=== PATIENT | male | born 1955 | race Caucasian/White ===

== ENCOUNTER 2019-12-15 09:16 | Outpatient (CLI) | payer MEDICARE, SELFPAY ==
[2019-12-15 09:28] LABS: Basophils Absolute Auto 0.04 K/mm3 (0.00-0.10); Basophils Percent Auto 0.8 % (0.0-1.0); Eosinophils Absolute Auto 0.07 K/mm3 (0.02-0.50); Eosinophils Percent Auto 1.4 % (1.0-6.0); Hemoglobin 14.9 g/dL (12.4-15.3); Immature Granulocyte Absolute 0.03 K/mm3 (0.00-0.00); Immature Granulocyte Percent A 0.6 % (0.0-0.0); Lymphocytes Absolute Auto 2.09 K/mm3 (1.10-4.50); Lymphocytes Percent Auto 42.2 % (18.0-42.0); Mean Corpuscular HGB Conc 33.1 g/dL (32.0-36.0); Mean Corpuscular Hemoglobin 28.7 pg (27.0-31.0); Mean Corpuscular Volume 86.7 fL (78.0-102.0); Mean Platelet Volume 9.5 fl (8.7-11.0); Monocytes Absolute Auto 0.72 K/mm3 (0.10-0.90); Monocytes Percent Auto 14.5 % (2.0-11.0); Neutrophils Percent Auto 40.5 % (50.0-70.0); Platelet Count Result 154 K/mm3 (150-420); Red Blood Count 5.19 M/mm3 (4.70-6.10)
[2019-12-15 10:41] LABS: Alanine Aminotransferase 30 U/L (16-63); Albumin Level 3.7 g/dL (3.4-5.0); Alkaline Phosphatase 93 U/L (46-116); Anion Gap 14.7 mmol/L (7-16); Aspartate Amino Transferase 17 U/L (15-37); Bilirubin,Total 0.5 mg/dL (0.00-1.00); Blood Urea Nitrogen 14 mg/dL (7-18); Calcium 9.2 mg/dL (8.5-10.1); Carbon Dioxide 29 mmol/L (21-32); Chloride 106 mmol/L (98-108); Estimated Glomerular Filt Rate > 60; Glucose 124 mg/dL (70-99); Osmolality Calculated 303 mOsm/kg (285-295); Potassium 3.7 mmol/L (3.5-5.1); Sodium 146 mmol/L (136-145); Total Protein 7.5 g/dL (6.4-8.2)
[2019-12-20 08:13] LABS: Valproic Acid 52.5 mg/L (50.0-100.0)
== END 2019-12-15 09:17 | disposition home or self-care (01) ==
PROVIDERS: PCP Emergency Medicine
DX: Z79.899 Other long term (current) drug therapy (principal)
CPT/HCPCS: 36415; 80053; 80164; 85025

== ENCOUNTER 2021-06-24 15:31 | Observation (INO) | payer MEDICARE, MEDICAID, SELFPAY ==
[2021-06-24] VITALS (10 sets, daily range): BP systolic 120–137; BP diastolic 77–100; PULSE 63–102; RESP 14–20; TEMP 36.6–36.9; O2SAT 93–99; BMI 26.4
--- NOTE | ~2021-06-24 | US_ITS ---
EXAMINATION: US carotid duplex BI DATE: 06/25/2021 07:59 INDICATION: Weakness. Chest pain. TECHNIQUE: Grayscale, color Doppler, and pulsed Doppler images of the cervical carotid arteries were obtained. The degree of vessel stenosis is placed in one of the following categories: normal, <50%, 5 0-69%, >=70% but less than near-occlusion, near-occlusion, or total occlusion. Note that percent sten osis relative to normal distal artery lumen diameter is indirectly measured from velocity measurement s as described by Miko, et al. Radiology 2003; 229:340-346. COMPARISON: None. FINDINGS: RIGHT: The right common carotid artery (CCA) peak systolic velocity (PSV) is 100 cm/s. The right internal ca rotid artery (ICA) PSV is 93 cm/s. The right ICA end-diastolic velocity (EDV) is 22 cm/s. The right I CA/CCA PSV ratio is 0.9. Grayscale and color Doppler images yield an estimate of <50% diameter reduct ion from minimal plaque in the ICA. The external carotid artery (ECA) PSV is 63 cm/s. There is antegr shelby flow in the right vertebral artery. LEFT: The left CCA PSV is 105 cm/s. The left ICA PSV is 63 cm/s. The left ICA EDV is 19 cm/s. The left ICA/ CCA PSV ratio is 0.6. Grayscale and color Doppler images yield an estimate of <50% diameter reduction from small amount of plaque in the ICA. The ECA PSV is 74 cm/s. There is antegrade flow in the left vertebral artery. IMPRESSION: 1. <50% stenosis in the right internal carotid artery. 2. <50% stenosis in the left internal carotid artery. Reviewed, dictated and finalized at location A.
--- NOTE | ~2021-06-24 | XR_ITS ---
XR chest 1V portable DATE: 06/24/2021 15:47 INDICATION: Chest pain. Weakness. TECHNIQUE: Portable AP chest on 06/24/2021 at 1542 hours COMPARISON: None FINDINGS: Status post sternotomy and probable coronary bypass graft surgery. Normal heart size. Mild thoracic aortic unfolding. No hilar enlargement is evident. There is mild pro minence of the superior mediastinum on the right, possibly due to tortuous great vessels or substerna l thyroid. No pulmonary infiltrate or consolidation, pleural effusion or pulmonary vascular congestion or pneumo thorax. Bilateral chronic rotator cuff atrophy. Diffuse osteopenia. Diffuse idiopathic skeletal hyperostosis of the thoracic spine and mild thoracic dextroscoliosis. Old healed fractures of the left rib cage. IMPRESSION: Status post sternotomy; no active cardiopulmonary disease Reviewed, dictated and finalized at location A.
--- NOTE | 2021-06-24 15:35 | ECG_ITS ---
Measurements Intervals [facility] Rate: 100 P: 72 OR: 178 QRS: 61 QRSD: 109 T: 74 QT: 360 QTc: 464 Interpretive Statements SINUS TACHYCARDIA MINIMAL Q WAVES- INFERIOR LEADS BORDERLINE T WAVE ABNORMALITY- HIGH LATERAL LEADS BORDERLINE ECG Electronically Signed On 06-25-2021 6:06:13 CDT by Pradeep Velasco D.O.
--- NOTE | 2021-06-24 15:35 | ED.CHESTPAIN ---
HPI - Chest Pain General Chief Complaint: Dizziness Stated Complaint: ambulance Time Seen by Provider: 06/24/21 15:35 Source: patient Mode of arrival: EMS Limitations: no limitations History of Present Illness HPI narrative: 66-year-old man with a history of coronary artery disease status post CABG and 7 stents brought to the emergency department after he became weak at [facility]. Patient states he did not really fall just lowered himself and bumped the left side of his head lightly. He was weak. He had walked to the store. He was found to be diaphoretic, sitting in a chair and have a blood sugar of 99. Just prior to arrival to the hospital he was complaining of chest tightness. MD complaint: chest pain (tightness) Pertinent past history: coronary artery disease and prior ND Onset (ago): minute(s) (20) Timing of current episode: episodic Prior episodes: Yes Onset: other (standing) Pain radiation: none Severity: mild Pain scale (0-10): 3 Quality: tightness Relieving factors: nothing Exacerbating factors: nothing Associated symptoms: diaphoresis Treatment prior to arrival: none Risk Factors Coronary artery disease risk factors: hyperlipidemia, hypertension and family history of CAD before age 50 (55) Thoracic aortic dissection risk factors: none Related Data Home Medications Medication Instructions Recorded Confirmed aspirin 81 mg tablet,delayed 81 mg PO DAILY 10/08/19 release buspirone 15 mg tablet 15 mg PO BID 10/08/19 carvedilol 3.125 mg tablet See Rx Instructions .ROUTE .COMPLEX 10/08/19 cholecalciferol (vitamin D3) 25 25 mcg PO DAILY 10/08/19 mcg (1,000 unit) capsule clopidogrel 75 mg tablet 75 mg PO DAILY 10/08/19 divalproex 500 mg tablet,delayed See Rx Instructions .ROUTE .COMPLEX 10/08/19 release melatonin 5 mg capsule See Rx Instructions .ROUTE .COMPLEX 10/08/19 metoprolol succinate 50 mg 50 mg PO DAILY 10/08/19 tablet,extended release 24 hr multivitamin 1 tablet PO .Daily with food 10/08/19 tablet omega-3 fatty acids 1,000 mg See Rx Instructions .ROUTE .COMPLEX 10/08/19 capsule quetiapine 100 mg tablet 100 mg PO DAILY tablet 10/08/19 trazodone 50 mg tablet See Rx Instructions .ROUTE .COMPLEX 12/13/19 zolpidem 5 mg tablet See Rx Instructions .ROUTE .COMPLEX 10/08/19 Allergies Allergy/AdvReac Type Severity Reaction Status Date / Time cyclobenzaprine Allergy Mild RASH Verified 09/30/19 15:58 Review of Systems Review of Systems: All systems reviewed & are unremarkable except as noted in HPI and below Constitutional: Constitutional: Denies chills and Denies fever(s) Eyes: Eyes: Denies change in vision and Denies photophobia ENT: Denies dysphagia, Denies nasal congestion and Denies sore throat Cardiovascular: Cardiovascular: Denies chest pain and Denies radiating jaw, neck or arm pain Respiratory: Respiratory: Denies cough, Denies dyspnea and Denies wheezing Gastrointestinal: Gastrointestinal: Denies abdominal pain, Denies diarrhea, Denies nausea and Denies vomiting Genitourinary: Genitourinary: Denies dysuria and Denies urinary frequency Musculoskeletal: Musculoskeletal: Denies back pain, Denies arthralgias and Denies joint swelling Integumentary/Breasts: Skin/Breast: Denies pruritus, Denies erythema and Denies rash Neurologic: Denies vertigo, Denies dizziness and Denies syncope Hematologic/Lymphatic: Hematologic/Lymphatic: Denies easy bleeding and Denies easy bruising Allergic/Immunologic: Allergic/Immunologic: Denies lip swelling and Denies throat swelling [facility] Past Medical History Medical History (Updated 06/24/21 @ 15:54 by Nakul Nicole MD) Coronary artery disease Depression Dyslipidemia Hypertension Surgical History Surgical History (Updated 06/24/21 @ 15:53 by Nakul Nicole MD) History of cholecystectomy Hx of CABG Previous back surgery Stented coronary artery Family History Family History (System 09/30/19 @ 15:58 by Aminah
[2021-06-24] MEDS: ASPIRIN 81 MG CHEWABLE TABLET 324 MG PO (15:49)
[2021-06-24 15:56] LABS: Hematocrit 40.1 % (37.0-46.0); Hemoglobin 13.7 g/dL (12.4-15.3); Mean Corpuscular HGB Conc 34.2 g/dL (32.0-36.0); Mean Corpuscular Hemoglobin 29.9 pg (27.0-31.0); Mean Corpuscular Volume 87.6 fL (78.0-102.0); Mean Platelet Volume 9.3 fl (8.7-11.0); Platelet Count Result 119 K/mm3 (150-420); Red Blood Count 4.58 M/mm3 (4.70-6.10); Red Cell Distribution Width 12.5 % (11.6-14.4); White Blood Count 3.7 K/mm3 (4.8-10.8)
[2021-06-24 16:14] LABS: Alanine Aminotransferase 30 U/L (16-63); Albumin Level 3.2 g/dL (3.4-5.0); Alkaline Phosphatase 66 U/L (46-116); Anion Gap 13 mmol/L (8-16); Aspartate Amino Transferase 16 U/L (15-37); Bilirubin,Total 0.7 mg/dL (0.00-1.00); Blood Urea Nitrogen 12 mg/dL (7-18); Calcium 8.1 mg/dL (8.5-10.1); Carbon Dioxide 23 mmol/L (21-32); Chloride 106 mmol/L (98-108); Estimated CRCL calculation 53 ml/min; Estimated Glomerular Filt Rate 56; Glucose 99 mg/dL (70-99); Osmolality Calculated 293 mOsm/kg (285-295); Potassium 3.9 mmol/L (3.5-5.1); Sodium 142 mmol/L (136-145); Total Protein 6.5 g/dL (6.4-8.2); Troponin I 6.2 ng/L (0.00-60.4)
[2021-06-24 16:33] LABS: Band Neutrophils Percent 0 % (0-6); Basophils Percent Manual 0 % (0-1); Eosinophils Absolute Manual 0.03 K/mm3 (0.02-0.5); Eosinophils Percent Manual 1 % (1-6); Lymphocytes Absolute Manual 0.66 K/mm3 (1.1-4.5); Lymphocytes Percent Manual 18 % (18-44); Monocytes Absolute Manual 0.51 K/mm3 (0.1-0.90); Monocytes Percent Manual 14 % (3-9); Neutrophils Absolute Manual 2.47 K/mm3 (1.3-6.7); Neutrophils Percent Manual 67 % (46-73); Platelet Estimate Adequate (Adequate)
[2021-06-24] MEDS: NITROGLYCERIN SL 0.4 MG TABLET SUBLINGUAL (17:02)
[2021-06-24] MEDS: SODIUM CHLORIDE 0.9% IV 1,000 ML 999 ML IV CONT (17:02)
--- NOTE | 2021-06-24 17:02 | PC.NURSE ---
pt calls for RN, upon entering the room pt is sitting on the side of the bed and states he rolled onto the floor while sleeping. pt has no evidence of injury and denies hitting his head. erp called into the room for an assessment. pt states he hit his left elbow. no bruising, swelling, injury, pain, etc.
[2021-06-24 17:17] LABS: Ethanol < 3 mg/dL (0-6)
--- NOTE | 2021-06-24 17:18 | PC.NURSE ---
1631 1 L NS initiated by [facility] has finished infusing. ERP aware
--- NOTE | 2021-06-24 17:18 | PC.NURSE ---
chest tightness (3/10). 1 SL nitro tablet given. pain now 2/10. 2nd dose of SL nitro given per erp. pain now 1/10
--- NOTE | 2021-06-24 17:21 | PC.NURSE ---
pt hits call light to tell RN that chest tightness is back up to a 3/10. erp made aware
--- NOTE | 2021-06-24 17:41 | PC.NURSE ---
1721 rn requests obs room from [facility] espitia rn. room 204 provided. registration notified.
[2021-06-24] MEDS: MAG HYDROX/ALUMINUM HYD/SIMETH 30 ML, PHENobarb/HYOSCY/ATROPINE/SCOP 32.4 MG, LIDOCAINE... PO (17:47)
[2021-06-24] MEDS: SODIUM CHLORIDE 0.9% IV 1,000 ML 100 ML IV CONT (18:32)
[2021-06-24 19:02] LABS: Troponin I 9.4 ng/L (0.00-60.4)
[2021-06-24 19:18] LABS: INR 1.1; Partial Thromboplastin Time 24.8 SEC (23.90-30.70); Prothrombin Time 11.5 Seconds (9.50-12.10)
--- NOTE | 2021-06-24 19:42 | PC.NURSE ---
Patient resting in bed watching tv. A&Ox4. Respirations even and unlabored. Abdomen soft and non-tender. BS+x4. No edema noted. Patient denies SOB/chest pain/complaints/needs @ this time. Examined left latter day area where patient says he lightly hit his head when he fell. No bruising or bump noted. Patient says he also bumped his left knee. Examined knee and found a very small abrasion. No bruising or bleeding noted. No distress noted. Patient educated on not getting up unattended and to call nurse when he uses urinal for UA being needed. Call light in reach.
[2021-06-24 20:37] LABS: Add Urine Microscopic? YES; Appearance Urine Clear (Clear); Bilirubin Urine Negative (Negative); Blood Urine Negative (Negative); Color Urine Light Yellow (Yellow); Glucose Urine UA Negative (Negative); Ketones Urine Trace (Negative); Leukocyte Esterase Ur Negative LEU/UL (Negative); Nitrate Urine Negative (Negative); Protein Urine Negative (Negative)
[2021-06-24 20:42] LABS: RBC Urine None seen /hpf (0-2)
[2021-06-24 20:43] LABS: Squamous Epithelial Cell Urine Rare /hpf (Few); WBC Urine None seen /hpf (0-3)
[2021-06-24] MEDS: MIRTAZAPINE 15 MG TABLET 30 MG PO (21:10)
[2021-06-24] MEDS: QUEtiapine FUMARATE 100 MG TABLET PO (21:10)
[2021-06-24] MEDS: DIVALPROEX SODIUM DR 250 MG TABEC 500 MG PO (21:29)
[2021-06-24 21:45] LABS: SARS-CoV-2 Ag Negative (Negative)
[2021-06-24 22:39] LABS: Troponin I 9.7 ng/L (0.00-60.4)
[2021-06-25] VITALS: BP 129/82; PULSE 84; RESP 18; TEMP 36.6; O2SAT 96
[2021-06-25 02:22] LABS: Troponin I 11.3 ng/L (0.00-60.4)
[2021-06-25 04:00] VITALS: BP 147/84; PULSE 68; RESP 18; TEMP 36.6; O2SAT 96
[2021-06-25] MEDS: SODIUM CHLORIDE 0.9% IV 1,000 ML 100 ML IV CONT (04:19)
--- NOTE | 2021-06-25 06:13 | PM.SD2 ---
Same Day Admit/Disch: HPI History of Present Illness Chief complaint: CHEST TIGHTNESS H/O CAD <DALILA Singh - Last Filed: 06/25/21 08:25> Narrative: Ward Macias is a 66 year old male that presented to emergency department with complaints of dizziness and chest tightness. Patient has a past medical history of CAD and status post CABG. According to the patient while he was in a store he felt dizzy and chest discomfort he had no other associated symptoms before this episode. Patient noted that he lowered himself to the floor. patient has not experienced any Dizziness or discomfort since his admission. Patient WBC is 3.7, hemoglobin 13.7, hematocrit 40.1, platelets 119, sodium 142, potassium 3.9, BUN 12, creatinine 1.27, troponin negative x4, EKG sinus tach heart rate 1 100, chest x-ray negative, Covid negative, toxicology negative. The patient denies SOB, CP, palpitation, extremity numbness, lightheadedness, dizziness, constipation, diarrhea, chills, fever,diplopia, vertigo, gait and limb ataxia, facial paresis,dysphagia, dysarthria,hemiparesis/hemiplegia, neglect, aphasia, or visual field defects. Time spent 60 minutes Observation Disposition Home with self-care <DALILA Singh - Last Filed: 06/25/21 08:25> Pt was transferred to [facility] in [place], [place] for Psych. He was not DC'ed home due to suicidal ideation. <MICHI Serrano - Last Filed: 06/26/21 17:15> [facility] Past Medical History Medical History: Medical History Coronary artery disease Depression Dyslipidemia Hypertension <DALILA Singh - Last Filed: 06/25/21 08:25> Surgical History Surgical History: Surgical History History of cholecystectomy Hx of CABG Previous back surgery Stented coronary artery <DALILA Singh - Last Filed: 06/25/21 08:25> Family History Family History: Family History Grandparent Family history of malignant neoplasm Father Family history of heart disease in male family member before age 55 Family history of cardiovascular disease, Onset Age: 73 Sibling Family history of cardiovascular disease Mother Family history of hepatitis, Onset Age: 76 <DALILA Singh - Last Filed: 06/25/21 08:25> Social History Social History: Social History Smoking status: Never smoker Alcohol intake: unknown Substance use: unknown Gender identity (if verbalized by the patient): Male Sexual Orientation (if Verbalized by the Patient): Straight or Heterosexual Spiritual care concerns: No <DALILA Singh - Last Filed: 06/25/21 08:25> Same Day Admit/Disch: Med Pre-admit Medications Home Medications: Home Medications Medication Instructions Recorded Confirmed Type divalproex 500 mg PO HS 06/24/21 06/24/21 History mirtazapine 30 mg PO HS 06/24/21 06/24/21 History quetiapine 100 mg PO HS 06/24/21 06/24/21 History atorvastatin 20 mg PO DAILY #30 tablet 06/25/21 Rx clopidogrel 75 mg PO QAM #30 tablet 06/25/21 Rx metoprolol succinate [Toprol XL] 25 mg PO QAM #30 tablet 06/25/21 Rx <DALILA Singh - Last Filed: 06/25/21 08:25> Exam Narrative: GENERAL: This is a well-nourished, well-developed patient, in no apparent distress. HEAD: normocephalic, atraumatic. EYES: PERRL. Sclera clear/white. Vision is grossly intact. EARS: External ears normal, auditory canals clear and without drainage, TMs normal without perforation. Hearing grossly intact. NOSE: External nose normal with no obvious nasal discharge, nares without redness, no rhinorrhea. THROAT: Mucous membranes moist, posterior pharynx clear. NECK: Neck supple, non-tender without lymphadenopathy, masses or thyromegaly. CARDIOVASC
[2021-06-25 06:14] LABS: Basophils Absolute Auto 0.03 K/mm3 (0.00-0.10); Basophils Percent Auto 0.6 % (0.0-1.0); Eosinophils Absolute Auto 0.04 K/mm3 (0.02-0.50); Eosinophils Percent Auto 0.8 % (1.0-6.0); Hematocrit 39.7 % (37.0-46.0); Hemoglobin 13.1 g/dL (12.4-15.3); Immature Granulocyte Absolute 0.03 K/mm3 (0.00-0.00); Immature Granulocyte Percent A 0.6 % (0.0-0.0); Immature Platelet Fraction Pct 1.8 % (1.0-7.0); Lymphocytes Absolute Auto 1.96 K/mm3 (1.10-4.50); Lymphocytes Percent Auto 41.4 % (18.0-42.0); Mean Corpuscular Hemoglobin 29.3 pg (27.0-31.0); Mean Corpuscular Volume 88.8 fL (78.0-102.0); Mean Platelet Volume 10.2 fl (8.7-11.0); Monocytes Absolute Auto 0.59 K/mm3 (0.10-0.90); Monocytes Percent Auto 12.5 % (2.0-11.0); Neutrophils Absolute Auto 2.1 K/mm3 (1.7-7.2); Neutrophils Percent Auto 44.1 % (50.0-70.0); Platelet Count Result 117 K/mm3 (150-420); Red Blood Count 4.47 M/mm3 (4.70-6.10); Red Cell Distribution Width 12.6 % (11.6-14.4); White Blood Count 4.7 K/mm3 (4.8-10.8)
[2021-06-25 06:39] LABS: Alanine Aminotransferase 27 U/L (16-63); Albumin Level 2.9 g/dL (3.4-5.0); Alkaline Phosphatase 66 U/L (46-116); Anion Gap 8 mmol/L (8-16); Aspartate Amino Transferase 15 U/L (15-37); Bilirubin,Total 0.4 mg/dL (0.00-1.00); Blood Urea Nitrogen 11 mg/dL (7-18); Carbon Dioxide 26 mmol/L (21-32); Chloride 109 mmol/L (98-108); Estimated CRCL calculation 66 ml/min; Estimated Glomerular Filt Rate > 60; Glucose 88 mg/dL (70-99); Osmolality Calculated 294 mOsm/kg (285-295); Potassium 3.6 mmol/L (3.5-5.1); Sodium 143 mmol/L (136-145)
[2021-06-25 06:54] LABS: Troponin I 10.8 ng/L (0.00-60.4)
[2021-06-25 08:00] VITALS: BP 150/98; PULSE 80; RESP 18; TEMP 36.6; O2SAT 96
[2021-06-25 09:43] VITALS: PULSE 84
[2021-06-25] MEDS: CLOPIDOGREL BISULFATE 75 MG TABLET PO (09:43)
[2021-06-25] MEDS: ATORVASTATIN 10 MG TABLET 20 MG PO (09:43)
[2021-06-25] MEDS: METOPROLOL SUCCINATE EXT REL 25 MG TABCR PO (09:43)
[2021-06-25 12:00] VITALS: BP 162/91; PULSE 77; RESP 22; TEMP 36.5; O2SAT 99
--- NOTE | 2021-06-25 13:10 | PC.NURSE ---
Discharge instructions reviewed with patient, patient verbalizes understanding. Patient signed discharge paper, then states, Remember when you asked me about suicide thoughts earlier? SN replied yes, asked patient when thoughts started. Patient reports about an hour ago. States he is in a very dark place and just does not see a way out. SN asked patient if he has a plan on how he would kill himself. States he would go home and take a bunch of pills. Discharge suspended. Patient belongings placed in med room, patient moved to room 206 for purpose of continuous visual observation. Phone and call light removed from room.
--- NOTE | 2021-06-25 13:21 | PM.EVENT ---
Event Note Event Note Event Note: Patient will not be discharged she notes that he is having thoughts of suicide
--- NOTE | 2021-06-25 13:45 | PC.NURSE ---
SN called [facility], spoke to Sara. HERNANDEZ to come out to evaluate patient in the next hour.
[2021-06-25 16:00] VITALS: BP 162/96; PULSE 72; RESP 18; TEMP 36.3; O2SAT 98
--- NOTE | 2021-06-25 18:31 | PC.NURSE ---
1505 Regino, [facility], here to evaluate patient. Patient states he would like to be admitted for voluntary psych eval. Regino spoke to son, Michoacano Macias, regarding voluntary admission and phone consent to release information,
--- NOTE | 2021-06-25 18:35 | PC.NURSE ---
Utility Locate Technician from [facility] called and stated either Beata or Elliot will be following up with patient.
[2021-06-25] MEDS: DIVALPROEX SODIUM DR 250 MG TABEC 500 MG PO (20:30)
[2021-06-25] MEDS: QUEtiapine FUMARATE 100 MG TABLET PO (20:30)
[2021-06-25] MEDS: MIRTAZAPINE 15 MG TABLET 30 MG PO (20:30)
--- NOTE | 2021-06-25 20:35 | PC.NURSE ---
Patient sitting on edge of bed. Nurse asked if patient would like to watch tv and patient said yes. Nurse helped patient find a channel he liked and then patient laid down in the bed and started watching tv.
--- NOTE | 2021-06-25 21:00 | PC.NURSE ---
Patient came out to nurses station and asked for his underwear that are with his personal belongings, locked in med room. Asked patient if someone had brought him some clean ones and he said no, that the nurse had washed them out last night when he had an accident in them. This nurse is the one that had washed them out the evening before this and placed them into a personal belongings bag. Patient wanted to hang them over his bed rail to dry. When told patient he couldn't do that, he said that he'd just put them back on then. Nurse then said he couldn't wear wet underwear. Then patient said he would put the underwear on under or over the depend he was wearing. Patient just stood staring @ nothing for approximately 1 minute. Nurse asked patient to walk back to his room with nurse and he continued staring off into space. After second time nurse asked, patient then walked back to his room with nurse. Patient sat on edge of bed for several minutes and then laid down.
--- NOTE | 2021-06-25 22:15 | PC.NURSE ---
Patient appears to be sleeping by the rise and fall of his chest. Respirations even and unlabored. No distress noted.
--- NOTE | 2021-06-25 22:16 | PC.NURSE ---
3159 Baeta from [facility] called and asked nurse to fax chart to [facility]. [phone]
[2021-06-26] VITALS: BP 160/91; PULSE 65; RESP 18; TEMP 35.6; O2SAT 96
[2021-06-26 00:04] LABS: Thyroid Stimulating Hormone 3.02 uIU/mL (0.36-3.74)
--- NOTE | 2021-06-26 01:46 | ECG_ITS ---
Measurements Intervals [place] [facility] Rate: 64 P: 64 TX: 220 QRS: 50 QRSD: 108 T: 79 QT: 445 QTc: 459 Interpretive Statements SINUS RHYTHM WITH FIRST DEGREE AV BLOCK CONSIDER INFERIOR INFARCT, AGE INDETERMINATE BASELINE ARTIFACT- I, II ABNORMAL ECG Electronically Signed On 06-26-2021 7:48:29 CDT by Pradeep Velasco D.O.
--- NOTE | 2021-06-26 02:01 | PC.NURSE ---
Spoke with Beata from [facility]. [facility] wants all new labs on pt before they will review his chart for transfer. Dr Us updated. New orders for labs obtained.
[2021-06-26 02:20] LABS: Basophils Absolute Auto 0.04 K/mm3 (0.00-0.10); Basophils Percent Auto 0.8 % (0.0-1.0); Eosinophils Absolute Auto 0.07 K/mm3 (0.02-0.50); Eosinophils Percent Auto 1.4 % (1.0-6.0); Hematocrit 42.9 % (37.0-46.0); Hemoglobin 14.4 g/dL (12.4-15.3); Immature Granulocyte Absolute 0.03 K/mm3 (0.00-0.00); Immature Granulocyte Percent A 0.6 % (0.0-0.0); Immature Platelet Fraction Pct 1.8 % (1.0-7.0); Lymphocytes Absolute Auto 2.07 K/mm3 (1.10-4.50); Lymphocytes Percent Auto 40.7 % (18.0-42.0); Mean Corpuscular HGB Conc 33.6 g/dL (32.0-36.0); Mean Corpuscular Hemoglobin 29.8 pg (27.0-31.0); Mean Corpuscular Volume 88.6 fL (78.0-102.0); Mean Platelet Volume 9.5 fl (8.7-11.0); Monocytes Absolute Auto 0.67 K/mm3 (0.10-0.90); Monocytes Percent Auto 13.2 % (2.0-11.0); Neutrophils Absolute Auto 2.2 K/mm3 (1.7-7.2); Neutrophils Percent Auto 43.3 % (50.0-70.0); Platelet Count Result 144 K/mm3 (150-420); Red Blood Count 4.84 M/mm3 (4.70-6.10); Red Cell Distribution Width 12.6 % (11.6-14.4); White Blood Count 5.1 K/mm3 (4.8-10.8)
[2021-06-26 02:23] LABS: Add Urine Microscopic? NO; Appearance Urine Clear (Clear); Bilirubin Urine Negative (Negative); Blood Urine Negative (Negative); Color Urine Light Yellow (Yellow); Glucose Urine UA Negative (Negative); Ketones Urine Negative (Negative); Leukocyte Esterase Ur Negative LEU/UL (Negative); Nitrate Urine Negative (Negative); Protein Urine Negative (Negative); Specific Grav Ur 1.015 (1.010-1.020); Urobilinogen Urine 0.2 mg/dL (0.2-1.0)
[2021-06-26 02:29] LABS: INR 1.1; Prothrombin Time 11.2 Seconds (9.50-12.10)
[2021-06-26 02:31] LABS: Alanine Aminotransferase 29 U/L (16-63); Albumin Level 3.6 g/dL (3.4-5.0); Alkaline Phosphatase 86 U/L (46-116); Anion Gap 7 mmol/L (8-16); Aspartate Amino Transferase 21 U/L (15-37); Bilirubin,Total 0.4 mg/dL (0.00-1.00); Blood Urea Nitrogen 9 mg/dL (7-18); Calcium 8.7 mg/dL (8.5-10.1); Carbon Dioxide 30 mmol/L (21-32); Chloride 105 mmol/L (98-108); Estimated CRCL calculation 67 ml/min; Estimated Glomerular Filt Rate > 60; Glucose 105 mg/dL (70-99); Osmolality Calculated 292 mOsm/kg (285-295); Potassium 3.7 mmol/L (3.5-5.1); Sodium 142 mmol/L (136-145); Total Protein 7.3 g/dL (6.4-8.2)
[2021-06-26 02:31] LABS: Amphetamine Screen Urine Negative (Negative); Barbiturate Screen Urine Negative (Negative); Benzodiazepines Screen Urine Negative (Negative); Cannabinoid Screen Urine Negative (Negative); Cocaine Screen Urine Negative (Negative); Methadone Screen Urine Negative (Negative); Opiate Screen Urine Negative (Negative); Phencyclidine Screen Urine Negative (Negative)
[2021-06-26 02:32] LABS: Ethanol < 3 mg/dL (0-6)
[2021-06-26 04:00] VITALS: BP 134/97; PULSE 64; RESP 18; TEMP 35.9; O2SAT 97
--- NOTE | 2021-06-26 06:35 | PC.NURSE ---
Call received from Susana with [facility] saying that [facility] in [place], [place] has accepted patient. Appropriate paperwork compiled. Report called. Patient aware. Called [facility] to transport patient.
--- NOTE | 2021-06-26 07:00 | PC.NURSE ---
[facility] unable to transfer patient, [facility] contacted for transfer
--- NOTE | 2021-06-26 07:29 | PC.NURSE ---
Sitting on edge of bed, awaiting EMS for transfer to [place]
--- NOTE | 2021-06-26 08:07 | PC.NURSE ---
Discharge to psych services, report to EMS, confirmed address of receiving hospital in [facility] prior to transport
== END 2021-06-26 08:10 | disposition short-term general hospital (02) ==
LOC: CHSED 15:34 → CHS2ND 17:50
PROVIDERS: Admitting Provider Emergency Medicine; Emergency Provider Emergency Medicine; PCP Emergency Medicine; Visit Provider Emergency Medicine
DX: R55 Syncope and collapse (principal); R07.89 Other chest pain; I25.10 Atherosclerotic heart disease of native coronary artery without angina pectoris; I10 Essential (primary) hypertension; I25.2 Old myocardial infarction; E78.5 Hyperlipidemia, unspecified; R45.851 Suicidal ideations; F32.9 Major depressive disorder, single episode, unspecified; Z95.1 Presence of aortocoronary bypass graft; Z95.5 Presence of coronary angioplasty implant and graft; Z90.49 Acquired absence of other specified parts of digestive tract; Z20.822 Contact with and (suspected) exposure to COVID-19; Z79.899 Other long term (current) drug therapy
CPT/HCPCS: 36415; 71045; 80053; 80307; 81001; 81003; 84443; 84484; 85025; 85055; 85380; 85610; 85730; 87426; 93005; 93880; 96360; 96361; 99285; A9270; C9803; G0378; J7030

== ENCOUNTER 2022-02-06 15:28 | Emergency (ER) | payer MEDICARE, MEDICAID, SELFPAY ==
[2022-02-06] VITALS (57 sets, daily range): BP systolic 113–179; BP diastolic 51–159; PULSE 60–95; RESP 8–24; TEMP 36.7; O2SAT 95–99
--- NOTE | ~2022-02-06 | CT_ITS ---
EXAMINATION: CT brain wo con DATE: 02/06/2022 16:21 INDICATION: TECHNIQUE: Computed tomography (CT) of the head was performed without intravenous contrast. The dose- length product was 605.33 mGy-cm. COMPARISON: None FINDINGS: 6.3 cm AP by 1.8 cm transverse by 3.9 cm cc hypodense lentiform likely subdural right frontotemporal extra-axial fluid collection, adjacent dural thickening and communication with smaller more superior extra-axial collections that may be epidural and appear to communicate with pre-existing jose holes. Several foci of pneumocephalus are present. 5 mm right to left midline shift. No hydrocephalus. No acute ischemic infarct. Unremarkable dural venous sinus attenuation. No acute osseous abnormality. Right frontoparietal craniotomy. The aerated spaces are clear. IMPRESSION: 6.3 x 1.8 x 3.9 cm right frontotemporal extra-axial collection, suspicious for intracranial abscess, causing 5 mm right to left subfalcine herniation. Result communicated to Dr. Ramos by Dr. Nesbitt telephonically at 4:35 PM on 02/06/2022. Reviewed, dictated and finalized at location K. IMPRESSION: 6.3 x 1.8 x 3.9 cm right frontotemporal extra-axial collection, suspicious for intracranial abscess, causing 5 mm right to left subfalcine herniation. Result communicated to Dr. Ramos by Dr. Nesbitt telephonically at 4:35 PM on 02/06.
[2022-02-06 15:54] LABS: Basophils Absolute Auto 0.1 K/mm3 (0.0-0.1); Basophils Percent Auto 1.5 % (0.2-1.2); Hematocrit 40.2 % (42.0-52.0); Hemoglobin 12.2 g/dL (14.0-18.0); Immature Granulocyte Percent A 4.9 % (0-0.5); Lymphocytes Absolute Auto 1.32 K/mm3 (0.9-3.2); Lymphocytes Percent Auto 32.4 % (18.3-44.2); Mean Corpuscular HGB Conc 30.3 g/dl (32-36); Mean Corpuscular Hemoglobin 28.3 pg (26-34); Mean Corpuscular Volume 93.3 fl (80-100); Mean Platelet Volume 9.2 fl (7.4-10.4); Monocytes Absolute Auto 0.7 K/mm3 (0.1-0.6); Monocytes Percent Auto 17.2 % (2.6-8.5); Neutrophils Absolute Auto 1.8 K/mm3 (1.3-6.7); Platelet Count Result 113 k/mm3 (150-375); Red Blood Count 4.31 M/mm3 (4.6-6.20); Red Cell Distribution Width 15.3 % (11.5-14.5); White Blood Count 4.1 K/mm3 (4.5-10.0)
[2022-02-06 15:57] LABS: Appearance Urine Clear (Clear); Bilirubin Urine Negative (Negative); Blood Urine Negative (Negative); Color Urine Yellow (Yellow); Glucose Urine UA Negative (Negative); Ketones Urine Negative (Negative); Leukocyte Esterase Ur Negative LEU/UL (Negative); Nitrate Urine Negative (Negative); Protein Urine Negative (Negative)
[2022-02-06 16:02] LABS: Add Urine Microscopic? NO
[2022-02-06 16:05] LABS: Alanine Aminotransferase 23 U/L (4-50); Albumin Level 3.7 g/dL (3.5-5.1); Alkaline Phosphatase 79 U/L (38-126); Anion Gap 5 mmol/L (8-16); Aspartate Amino Transferase 37 U/L (17-59); Bilirubin,Total 0.4 mg/dL (0.2-1.3); Blood Urea Nitrogen 9 mg/dL (9-20); Calcium 8.1 mg/dL (8.4-10.2); Carbon Dioxide 29 mmol/L (22-30); Chloride 103 mmol/L (98-107); Estimated CRCL calculation 66 ml/min; Estimated Glomerular Filt Rate > 60; Glucose 80 mg/dL (65-110); Lipase 66 U/L (23-300); Potassium 4.2 mmol/L (3.4-5.0); Sodium 137 mmol/L (137-145)
--- NOTE | 2022-02-06 16:41 | ED.NAVMDI ---
HPI - Nausea/Vomiting/Diarrhea General Chief complaint: Nausea/Vomiting/Diarrhea Stated complaint: vomiting Time Seen by Provider: 02/06/22 16:18 Source: patient, EMS and RN notes reviewed Mode of arrival: EMS Limitations: no limitations History of Present Illness HPI Narrative: Patient is 67 years old white male brought to the emergency room by ambulance from [facility] because of nausea, dry heaves and vomiting started in the last 4 to 5 days ago. Last vomiting 3 days ago, yesterday had dry heaves once, today no nausea, no dry heaves or vomiting. Currently patient is asymptomatic.. Patient is status post subdural hemorrhage secondary to fall 1 month ago, status post a craniotomy at [facility]. Patient referred to our hospital today for nausea and vomiting evaluation after eating and after physical therapy. Patient denies any fever, chills, headache, abdominal pain, or focal neuro deficit. History of tingling numbness of the left hand. MD elicited complaint: nausea and vomiting Related Data Home Medications Medication Instructions Recorded Confirmed vilazodone 20 mg tablet 20 mg PO DAILY@1600 tablet 12/28/21 01/28/22 Allergies Allergy/AdvReac Type Severity Reaction Status Date / Time cyclobenzaprine Allergy Mild RASH Verified 02/06/22 15:34 Review of Systems Review of Systems: CONSTITUTIONAL: Denies fever, chills, or sweats. EYES: Denies visual changes, redness, or discharge. ENT: Denies rhinorrhea, congestion, sore throat, or otalgia. CARDIOVASCULAR: Denies chest pain, palpitations, or edema. RESPIRATORY: Denies cough or dyspnea. GASTROINTESTINAL: Denies abdominal pain, nausea, vomiting, or diarrhea. GENITOURINARY: Denies dysuria or hematuria. SKIN: Denies rash or itching. MUSCULOSKELETAL: Denies back pain, joint pain, or myalgia. NEUROLOGIC: Denies headache, numbness, or weakness. PSYCHIATRIC: Denies anxiety or depression. [facility] Past Medical History Medical History Coronary artery disease Depression Dyslipidemia Hypertension Surgical History Surgical History History of cholecystectomy Hx of CABG Previous back surgery Stented coronary artery Family History Family History Grandparent Family history of malignant neoplasm Father Family history of heart disease in male family member before age 55 Family history of cardiovascular disease, Onset Age: 73 Sibling Family history of cardiovascular disease Mother Family history of hepatitis, Onset Age: 76 Social History Social History Smoking status: Never smoker Alcohol intake: unknown Substance use: unknown Gender identity (if verbalized by the patient): Male Sexual Orientation (if Verbalized by the Patient): Straight or Heterosexual Spiritual care concerns: No Exam Narrative: General appearance: Well-developed, well-nourished. Patient does not look pain or distress. Skin: Normal color Head: Normocephalic, nontraumatic, right head surgical scar is dry and clean Eyes: Clear conjunctiva ENT: Oropharynx normal, ears normal, nose normal Neck: Supple, nontender Chest and respiratory: Airway patent, no respiratory distress, no accessory muscle use Heart: Regular rate/rhythm Abdomen: Soft, nontender, no organomegaly, quiet bowel sounds Vascular: Normal peripheral pulses, normal capillary refill. Musculoskeletal: Normal range of motion, nontender back Neurologic: Alert and oriented ?3, TRAINING SPECIALIST is normal as tested, no gross motor deficit
--- NOTE | 2022-02-06 17:17 | PC.NURSE ---
phone call received from Coral at [facility], requesting COVID swab for pt and results be called to [phone]. fence post cutter Emily made aware and test ordered.
[2022-02-06 18:26] LABS: SARS-CoV-2 RNA PCR Negative
--- NOTE | 2022-02-06 18:49 | PC.NURSE ---
Called [facility] transfer center and spoke to Len - she recorded pt's neg COVID swab into their system and states will Call back once per shift until a bed is found for the pt. So we will call back when there is a bed.
--- NOTE | 2022-02-06 22:54 | PC.NURSE ---
Called [facility] transfer line to check status of bed placement. Spoke to Perlita and she states request is in and we do not have a bed at this time. we will give you a call as soon as we have a bed available.
[2022-02-07] VITALS (10 sets, daily range): BP systolic 117–135; BP diastolic 75–87; PULSE 82; RESP 16–18; TEMP 37; O2SAT 100
== END 2022-02-07 04:39 | disposition short-term general hospital (02) ==
PROVIDERS: Emergency Provider Emergency Medicine; PCP Emergency Medicine
DX: R11.10 Vomiting, unspecified (principal); Z98.890 Other specified postprocedural states; Z20.822 Contact with and (suspected) exposure to COVID-19; I25.10 Atherosclerotic heart disease of native coronary artery without angina pectoris; E78.5 Hyperlipidemia, unspecified; Z95.1 Presence of aortocoronary bypass graft; Z95.5 Presence of coronary angioplasty implant and graft; R93.0 Abnormal findings on diagnostic imaging of skull and head, not elsewhere classified
CPT/HCPCS: 36415; 70450; 80053; 81003; 83690; 85025; 99285; C9803; U0003; U0005